=== PATIENT | female | born 1990 | race Caucasian/White ===

== ENCOUNTER 2023-11-08 15:18 | Observation (INO) ==
--- NOTE | 2023-11-08 16:17 | Emergency Department Note ---
Impression & Plan Ectopic without intrauterine , Pelvic pain, Abdominal pain, Acute dehydration ED Provider Note NAME: CAROL HAMMONDS AGE: 33 SEX: F : 1990 ARRIVES VIA: Walk-In INFORMANT: Patient, ED PROVIDER(S): Bal Smith MD CHIEF COMPLAINT: Abdominal pain MEDICAL DECISION MAKING: Patient presents to the behest of [employer] due to concern for recent ectopic with worsening abdominal pain and did have an outpatient ultrasound which did show ovarian enlargement hemorrhagic cysts and persistent ectopic . IV was established and blood work was obtained. Patient was ordered IV Toradol and fluids. I did initiate a consult page to on-call [employer] Dr. Licona. Patient was seen by Dr. Licona who would like a repeat ultrasound. Patient was ordered IV morphine as the patient was still having significant discomfort. Patient's blood work shows a normal white count H&H and platelet count the patient's kidney function is unremarkable with normal LFTs. Beta-hCG is 33 urinalysis shows ketones but no signs of infection. IV fluids ordered. Repeat imaging was obtained and the patient was still in significant discomfort. Ultrasound shows right adnexal complex hypoechoic lesion concerning for ectopic . After further discussion with Dr. Licona and the patient the patient will be taken to the OR. Patient declined any additional pain medication at this time the patient was subsequently taken to the operating room Discussion w/ other healthcare providers: Dr. Licona [employer] Prior /Outside records reviewed: None Appendicitis, ovarian cyst, ovarian torsion, ectopic , TOA, PID, diverticulitis, UTI, obstruction, inflammatory bowel disease, renal colic, PUD, pancreatitis, biliary pathology, hernia, volvulus, constipation, as well as other pathologies were considered. Diagnostics, as interpreted by me: ECG: None Cardiac monitoring: An order was placed for continuous cardiac monitoring. The monitor shows a rate of 95 with sinus rhythm. Patient was placed on pulse oximetry Medical decision rules: None Imaging studies: See below HPI: Patient presents due to concern for worsening right lower quadrant pain. Patient states that she developed pain this morning. She did take some ibuprofen and Tylenol but without significant improvement in symptoms. Patient was diagnosed with an ectopic back on October 28. The patient was started on methotrexate and states that she has had downtrending beta-hCG and her most recent quant was in the 60s. Patient denies any chest pains or shortness of breath. The patient is had nausea but no vomiting. No blood in the urine or stool. No falls or trauma no heavy lifting twisting or turning. Patient did have an outpatient ultrasound today completed at [facility] and then she called the office due to her worsening pain and was sent here for further evaluation and treatment. Patient states that it is worse when she sits compared to standing. PAST MEDICAL HISTORY: See Below PAST SURGICAL HISTORY: See Below SOCIAL HISTORY: See Below HOME MEDICATIONS: See Below ALLERGIES: See Below VITALS: See Below PHYSICAL EXAMINATION: GENERAL: Uncomfortable in appearance, wearing a mask, EYE EXAM: Normal conjunctiva. PERRL, no anisocoria and EOM's grossly intact w/o pain. OROPHARYNX: Moist mucus membranes, grossly normal dentition. NECK: Trachea midline, no stridor. Supple, no nuchal rigidity, no adenopathy, non-tender. No signs of meningismus. FROM of the neck with good chin to chest and neck extension. LUNGS: Clear to auscultation. Normal chest wall mechanics. HEART: NSR, no MRG. ABDOMEN: Abdomen soft, right lower quadrant pain without left lower quadrant pain, mild pain in the right lower quadrant when palpating the right upper quadrant, no masses, no rebound or guarding. BACK: No CVA TTP. SKIN: No rashes and no bruising. UPPER EXTREMITIES: Upper extremities are grossly normal. LOWER EXTREMITIES: Grossly normal, no edema. NEURO EXAM: A&O x3, cranial nerves II-XII grossly intact, normal speech, moves all 4 extremities. Past Med/Surg History Social History Smoking Status: Never smoker Second Hand Exposure: No; Do You Dip or Chew Tobacco: No; Tobacco Cessation Education Requested by Patient: No Hx Alcohol Use: Yes Alcohol type: other Hx Substance Use: No Preferred Language: Monegasque Communication Ability: Effective Accounts Receivable Supervisor Required: No Beliefs That Will Affect Care: None Current Living Situation: Family Other Information That Helps Us Care for You: No Feels Safe at Home: Yes Safety Concerns: Feels Safe At This Time Assistive Devices: None Allergies Allergies Allergy/AdvReac Type Severity Reaction Status Date / Time bee venom protein (honey bee) Allergy Severe Anaphylaxis Unverified 11/08/23 16:35 Home Meds Home Medications Medication Instructions Recorded Confirmed epinephrine 0.3 mg/0.3 mL 0.3 mg IM DAILY PRN Anaphylaxis 11/08/23 11/08/23 injection, auto-injector naratriptan 2.5 mg tablet 2.5 mg PO DAILY PRN Migraine 11/08/23 11/08/23 Headache Previous Rx's Medication Instructions Recorded ibuprofen 600 mg tablet 600 mg PO Q6 #40 tabs 11/09/23 oxycodone-acetaminophen 5 mg-325 1 tab PO Q4H #20 tabs 11/09/23 mg tablet (Percocet) Results & Data (ED) Vital Signs Vital Signs - 24 hr 11/08/23 15:41 Temperature 36.4 C L Temperature Source Temporal Artery Scan Pulse Rate 103 H Respiratory Rate 20 Blood Pressure 155/112 H Blood Pressure Mean 126 Pulse Oximetry 98 Oxygen Delivery Method Room Air Sepsis Recent Fever Within 48 Hours No Sepsis New/Unexplained Change in Mental Status N/A Sepsis Action Taken by Nursing No Action Required Home Medications Current Medication List: was personally reviewed by me Laboratory Data Attestation: I reviewed the patient's lab results. 11/09/23 06:21 11/09/23 06:21 Lab Results 11/08/23 11/08/23 Range/Units 16:14 16:20 WBC 6.68 (4.8-10.8) K/ul RBC 4.64 (4.20-5.40) M/uL Hgb 14.3 (12.0-16.0) g/dl Hct 41.8 (37.0-47.0) % MCV 90.1 (80.0-100.0) fL MCH 30.8 (25.0-34.0) pg MCHC 34.2 (32.0-36.0) g/dL RDW Std Deviation 39.3 (36.4-46.3) fL RDW Coeff of Alexi 11.9 (11.5-14.5) % Plt Count 280 (130-400) K/uL MPV 10.5 (9.4-12.4) fL Immature Gran % (Auto) 0.1 % Neut % (Auto) 58.8 % Lymph % (Auto) 31.9 % [place] % (Auto) 7.9 % Eos % (Auto) 1.0 % Baso % (Auto) 0.3 % Neut # (Auto) 3.92 (1.40-6.50) K/uL Lymph # (Auto) 2.13 (1.20-3.40) K/uL [place] # (Auto) 0.53 (0.11-0.59) K/uL Eos # (Auto) 0.07 (0.00-0.50) K/uL Baso # (Auto) 0.02 (0.00-0.20) K/uL Immature Gran # (Auto) 0.01 (0.01-0.20) K/uL Sodium 137 (136-145) mmol/L Potassium 3.6 (3.5-5.1) mmol/L Chloride 104 (98-107) mmol/L Carbon Dioxide 24 (21-32) mmol/L Anion Gap 9 (3-11) BUN 12 (6-23) mg/dl Creatinine 0.81 (0.6-1.2) mg/dl Est Cr Clr Drug Dosing 93.6 ml/min Est GFR ( Amer) 109.1 ml/min Est GFR (Non-Af Amer) 94.1 ml/min BUN/Creatinine Ratio 14.8 (10-20) Glucose 92 (70-99(Fasting)) mg/dl Calcium 9.9 (8.6-10.3) mg/dl Total Bilirubin 0.8 (0.2-1.0) mg/dl AST 18 (13-39) U/L ALT 19 (7-52) U/L Alkaline Phosphatase 49 (34-104) U/L Total Protein 8.1 (6.0-8.3) gm/dl Albumin 4.9 (3.4-5.0) gm/dl Globulin 3.2 (2.5-4.0) gm/dl Albumin/Globulin Ratio 1.5 (0.9-2) Lipase 15 (11-82) U/L HCG, Quant 33 mIU/ml Urine Color Yellow Urine Appearance Clear (Clear) Urine pH 6.5 (4.5-7.5) Ur Specific [place] 1.014 (1.000-1.030) Urine Protein Negative (Negative) Urine Glucose (UA) Negative (Negative) Urine Ketones 1+ H (Negative) Urine Blood Negative (Negative) Urine Nitrite Negative (Negative) Urine Bilirubin Negative (Negative) Urine Urobilinogen Negative (Negative) Ur Leukocyte Esterase Negative (Negative) Administered Medications Discontinued Medications Acetaminophen (Acetaminophen 325 Mg Tab) 650 mg PO Q6H PRN PRN Reason: pain, headache or fever Stop: 12/08/23 22:32 Last Admin: 11/09/23 08:38 Dose: 650 mg Documented By: SINAN Bupivacaine HCl/Epinephrine Bitart (Bupivacaine/Epinephrine 0.5% Mpf 1:200,000 30 Ml Vial) Confirm Administered Dose 30 ml .ROUTE .STK-MED ONE Stop: 11/08/23 20:23 Last Admin: 11/08/23 22:07 Dose: 20 ml Documented By: RAVINDER Docusate Sodium (Docusate Sodium 100 Mg Cap) 100 mg PO BID TIARA Stop: 12/09/23 08:59 Last Admin: 11/09/23 08:38 Dose: 100 mg Documented By: SINAN Sodium Chloride (Nss) 1,000 mls @ 999 mls/hr IV .Q1H1M ONE Stop: 11/08/23 18:09 Last Infusion: 11/08/23 18:51 Dose: Infused Documented By: Admin: 11/08/23 17:25 Dose: 999 mls/hr Documented By: MAGALYS Cefazolin Sodium (Ancef 2000mg) 2,000 mg in 15 mls @ 3.75 mls/min IV PREOP ONE; Protocol Stop: 11/08/23 20:01 Last Admin: 11/08/23 20:49 Dose: 3.75 mls/min Documented By: [id number] Ibuprofen (Ibuprofen 600 Mg Tab) 600 mg PO Q4H PRN PRN Reason: pain, HULL, cramping or fever Stop: 12/08/23 22:32 Last Admin: 11/09/23 03:56 Dose: 600 mg Documented By: CHIP Ketorolac Tromethamine (Ketorolac Tromethamine 15 Mg/Ml Vial) 10 mg IV NOW ONE Stop: 11/08/23 16:15 Last Admin: 11/08/23 16:24 Dose: 10 mg Documented By: MAGALYS Miscellaneous ( Floseal Hemostatic Matrix 5ml) 10 ml TOP ONCE ONE Stop: 11/08/23 22:07 Last Admin: 11/08/23 22:06 Dose: 10 ml Documented By: RAVINDER Morphine Sulfate (Morphine Sulfate 4 Mg/Ml 1 Ml Carp\Vial) 4 mg IV NOW STA Stop: 11/08/23 16:06 Last Admin: 11/08/23 16:47 Dose: 4 mg Documented By: MAGALYS Morphine Sulfate (Morphine Sulfate 4 Mg/Ml 1 Ml Carp\Vial) Confirm Administered Dose 4 mg .ROUTE .STK-MED ONE Stop: 11/08/23 18:20 Last Admin: 11/08/23 18:22 Dose: 4 mg Documented By: MAGALYS Morphine Sulfate (Morphine Sulfate 4 Mg/Ml 1 Ml Carp\Vial) 4 mg IV NOW STA Stop: 11/08/23 19:04 Last Admin: 11/08/23 19:22 Dose: 4 mg Documented By: BRIAN Ondansetron HCl (Ondansetron Inj 2 Mg/Ml 2 Ml Vial) Confirm Administered Dose 4 mg .ROUTE .STK-MED ONE Stop: 11/08/23 18:20 Last Admin: 11/08/23 18:22 Dose: 4 mg Documented By: MAGALYS Ondansetron HCl (Ondansetron Inj 2 Mg/Ml 2 Ml Vial) 4 mg IV NOW STA Stop: 11/08/23 18:20 Last Admin: 11/08/23 18:22 Dose: Not Given Documented By: MAGALYS Ondansetron HCl (Ondansetron Inj 2 Mg/Ml 2 Ml Vial) 4 mg IV Q6H PRN PRN Reason: Nausea And Vomiting Stop: 12/08/23 22:32 Last Admin: 11/09/23 00:22 Dose: 4 mg Documented By: Discharge Plan Visit Data Chief Complaint: Abdominal Pain Stated Complaint: ULTRASOUND TODAY POSSIBLE RUPTURED OVARY ED Provider: Bal Smith Discharge Problem: Ectopic without intrauterine , Pelvic pain, Abdominal pain, Acute dehydration Patient Disposition: Admitted As Inpatient Condition: Good Discharge Instructions Interventions: ED Discharge Assessment Last Done: 11/08/23 20:13 Discharge Problem: Ectopic without intrauterine Qualifiers: Location of ectopic : unspecified location Qualified Code(s): O00.90 - Unspecified ectopic without intrauterine Abdominal pain Qualifiers: Abdominal location: right lower quadrant Qualified Code(s): R10.31 - Right lower quadrant pain
[2023-11-08] MEDS: KETOROLAC TROMETHAMINE 15 MG/ML VIAL IV ONE (16:24)
[2023-11-08 16:41] LABS: Basophils # (auto) 0.02 K/uL (0.00-0.20); Basophils % (auto) 0.3 %; Eosinophils # (auto) 0.07 K/uL (0.00-0.50); Hematocrit (blood only) 41.8 % (37.0-47.0); Hemoglobin 14.3 g/dl (12.0-16.0); Immature Granulocytes # (auto) 0.01 K/uL (0.01-0.20); Immature Granulocytes % (auto) 0.1 %; Lymphocytes # (auto) 2.13 K/uL (1.20-3.40); Lymphocytes % (auto) 31.9 %; Mean Corpuscular Hemoglobin 30.8 pg (25.0-34.0); Mean Corpuscular Hgb Conc 34.2 g/dL (32.0-36.0); Mean Corpuscular Volume 90.1 fL (80.0-100.0); Mean Platelet Volume 10.5 fL (9.4-12.4); Monocytes # (auto) 0.53 K/uL (0.11-0.59); Monocytes % (auto) 7.9 %; Neutrophils # (auto) 3.92 K/uL (1.40-6.50); Neutrophils % (auto) 58.8 %; Platelet Count 280 K/uL (130-400); RDW Coefficient of Variation 11.9 % (11.5-14.5); RDW Standard Deviation 39.3 fL (36.4-46.3); Red Blood Count 4.64 M/uL (4.20-5.40); White Blood Count 6.68 K/ul (4.8-10.8)
[2023-11-08] MEDS: MoRPHine SULFATE 4 MG/ML 1 ML CARP\\VIAL IV STA ×2 (16:47→19:22)
[2023-11-08 16:58] LABS: Albumin Globulin Ratio 1.5 (0.9-2); Albumin Level 4.9 gm/dl (3.4-5.0); BUN Creatinine Ratio 14.8 (10-20); Bilirubin,Total 0.8 mg/dl (0.2-1.0); Calcium 9.9 mg/dl (8.6-10.3); Creatinine Clr Calc Pharmacy 93.6 ml/min; Est GFR (African American) 109.1 ml/min; Est GFR (Non-African American) 94.1 ml/min; Globulin 3.2 gm/dl (2.5-4.0); Potassium 3.6 mmol/L (3.5-5.1); Total Protein 8.1 gm/dl (6.0-8.3)
[2023-11-08 17:02] LABS: Appearance Urine Clear (Clear); Bilirubin Urine Negative (Negative); Blood Urine Negative (Negative); Color Urine Yellow; Glucose Urine UA Negative (Negative); Ketones Urine 1+ (Negative); Leukocyte Esterase Urine Negative (Negative); Nitrite Urine Negative (Negative); Protein Urine Negative (Negative); Specific Gravity Urine 1.014 (1.000-1.030); Urobilinogen Urine Negative (Negative); pH Urine 6.5 (4.5-7.5)
[2023-11-08] MEDS: SODIUM CHLORIDE 0.9% 1,000 ML IV ONE (17:25)
[2023-11-08] MEDS: ONDANSETRON INJ 2 MG/ML 2 ML VIAL ONE (18:22)
[2023-11-08] MEDS: MoRPHine SULFATE 4 MG/ML 1 ML CARP\\VIAL ONE (18:22)
[2023-11-08] MEDS: ONDANSETRON INJ 2 MG/ML 2 ML VIAL IV STA (18:22)
--- NOTE | 2023-11-08 18:42 | OB/GYN Consultation ---
Date of Consultation November 08, 2023 Assessment & Plan (1) Prior methotrexate therapy: 33-year-old -0-1-1 status post methotrexate therapy for ectopic on September 27, trending down beta-hCG 's from 1999's to 33 today. Normal H&H and white count, fluid in the pelvis per ultrasound with persistent lesion suggesting prior ectopic , right ovarian cyst hemorrhagic cyst Presenting today with worsening pelvic pain since yesterday, Is unlikely that she has bleeding from ectopic with decreasing beta hCG count and normal H&H, We discussed the possible options of fallopian tube swelling, irritation from recent ectopic , adnexal torsion, hemorrhagic corpus luteum cysts of right ovary, We discussed the options of either expectant management with pain medication and observe her overnight here versus going for laparoscopy to explore and treat if there is any pathology in the pelvis, She understands all and she wants to have another ultrasound to confirm the findings, We will decide after ultrasound results check for Doppler flow of ovaries, All questions were answered. (2) Ectopic without intrauterine : (3) Pelvic pain: History of Present Illness Reason for Consultation: Pelvic pain History of Present Illness Patient is a 33-year-old -0-1-1 who is status post methotrexate treatment for ectopic on September 27 Her beta-hCG counts were not rising normally. She had ultrasound then and it was suggesting right-sided ectopic at [facility]. She has been having beta-hCG counts since the treatment and they have been coming down normally. Her last count was last week and it was 66 and she had a repeat from today and it is 33miu/ml. she was doing fine until yesterday when she started to have pelvic pain. She had called office to report the pain and they performed an ultrasound for her. Her pain got worse this afternoon and became severe after 2 PM. She causes constant, at times 8-10 out of 10. Laying down helps but any type of movement or sitting makes it worse. She denies any problem with urination nor bowel movements. She had normal bowel movement this morning with no pain. But now it hurts when she sits in the bathroom. She denies fever chills, nausea or vomiting. She ate breakfast and kept it down this morning. But now her pain is making her nauseous. Her ultrasound done at [facility] as follows: LMP: History of ectopic on prior examination, post methotrexate treatment UTERUS: 8.2 cm x 4.4 cm x 5.7 cm MYOMETRIUM: Homogeneous ENDOMETRIUM: 6.9 mm in thickness, within normal limits. RIGHT OVARY: 6.2 cm x 2.7 cm x 2.7 cm, 23.6 ml there are cysts in the right ovary which appear to be hemorrhagic measuring 2.1 x 2.3 x 2 cm and 2.3 x 2.5 x 1.3 cm. In addition there is a right adnexal mass which measures 1.9 x 1.8 x 1.7 cm inferior and medial to the right ovary she is slightly larger than previous examination of 09/26/2023 at which time it measured 1.7 x 1.3 x 1.5 cm. This is likely ectopic . LEFT OVARY: 3.3 cm x 1.9 cm x 1.4 cm, 4.5 ml Unremarkable MISCELLANEOUS: Small amount of free fluid. IMPRESSION IMPRESSION: Persistent right adnexal mass slightly increased in size from prior examination 09/26/2023 as described above consistent with ectopic which persists post methotrexate correlate with clinical examination as well as beta HCG. 11/08/23 33 mIU/ml 11/01/23 68 mIU/ml 10/25/23 157 mIU/ml 10/18/23 278 mIU/ml 10/11/23 718 mIU/ml 10/01/23 1955 mIU/ml 09/25/23 2713 mIU/ml 09/23/23 2209 mIU/ml 09/21/23 1555 mIU/ml 09/19/23 1636 mIU/ml Allergies Allergy/AdvReac Type Severity Reaction Status Date / Time bee venom protein (honey bee) Allergy Severe Anaphylaxis Unverified 11/08/23 16:35 Home Medications Medication Instructions Recorded Confirmed Type epinephrine 0.3 mg/0.3 mL 0.3 mg IM DAILY PRN Anaphylaxis 11/08/23 11/08/23 History injection, auto-injector naratriptan 2.5 mg tablet 2.5 mg PO DAILY PRN Migraine 11/08/23 11/08/23 History Headache Patient History Social History Smoking Status: Never smoker Preferred Language: Luxembourger Feels Safe at Home: Yes Review of Systems Constitutional: as per Subjective / HPI Physical Exam Constitutional: WD/WN, vitals as above well developed, well nourished and + acute distress (seems painful, trying to get comfortable with moving and flexing legs) Gastrointestinal (Abdomen): normal bowel sounds, soft, nontender, no hepatosplenomegaly (Tenderness on right lower quadrant with rebound, epigastric tenderness pres) Genitourinary: normal external appearance Speculum/Bimanual Exam: normal appearance of the vagina, normal appearance of the cervix, + cervical tenderness, + abnormal adnexa (Right adnexal tenderness) and + cervical tenderness Results & Data Vital Signs (Past 12 Hours) Vital Signs Temp Pulse Resp BP Pulse Ox O2 Del Method 11/08/23 15:41 36.4 C L 103 H 20 155/112 H 98 Room Air 11/08/23 15:19 36.4 C L 20 98 Room Air Laboratory Results Lab Results 11/08/23 11/08/23 Range/Units 16:14 16:20 WBC 6.68 (4.8-10.8) K/ul RBC 4.64 (4.20-5.40) M/uL Hgb 14.3 (12.0-16.0) g/dl Hct 41.8 (37.0-47.0) % MCV 90.1 (80.0-100.0) fL MCH 30.8 (25.0-34.0) pg MCHC 34.2 (32.0-36.0) g/dL RDW Std Deviation 39.3 (36.4-46.3) fL RDW Coeff of Alexi 11.9 (11.5-14.5) % Plt Count 280 (130-400) K/uL MPV 10.5 (9.4-12.4) fL Immature Gran % (Auto) 0.1 % Neut % (Auto) 58.8 % Lymph % (Auto) 31.9 % [place] % (Auto) 7.9 % Eos % (Auto) 1.0 % Baso % (Auto) 0.3 % Neut # (Auto) 3.92 (1.40-6.50) K/uL Lymph # (Auto) 2.13 (1.20-3.40) K/uL [place] # (Auto) 0.53 (0.11-0.59) K/uL Eos # (Auto) 0.07 (0.00-0.50) K/uL Baso # (Auto) 0.02 (0.00-0.20) K/uL Immature Gran # (Auto) 0.01 (0.01-0.20) K/uL Sodium 137 (136-145) mmol/L Potassium 3.6 (3.5-5.1) mmol/L Chloride 104 (98-107) mmol/L Carbon Dioxide 24 (21-32) mmol/L Anion Gap 9 (3-11) BUN 12 (6-23) mg/dl Creatinine 0.81 (0.6-1.2) mg/dl Est Cr Clr Drug Dosing 93.6 ml/min Est GFR ( Amer) 109.1 ml/min Est GFR (Non-Af Amer) 94.1 ml/min BUN/Creatinine Ratio 14.8 (10-20) Glucose 92 (70-99(Fasting)) mg/dl Calcium 9.9 (8.6-10.3) mg/dl Total Bilirubin 0.8 (0.2-1.0) mg/dl AST 18 (13-39) U/L ALT 19 (7-52) U/L Alkaline Phosphatase 49 (34-104) U/L Total Protein 8.1 (6.0-8.3) gm/dl Albumin 4.9 (3.4-5.0) gm/dl Globulin 3.2 (2.5-4.0) gm/dl Albumin/Globulin Ratio 1.5 (0.9-2) Lipase 15 (11-82) U/L HCG, Quant 33 mIU/ml Urine Color Yellow Urine Appearance Clear (Clear) Urine pH 6.5 (4.5-7.5) Ur Specific [place] 1.014 (1.000-1.030) Urine Protein Negative (Negative) Urine Glucose (UA) Negative (Negative) Urine Ketones 1+ H (Negative) Urine Blood Negative (Negative) Urine Nitrite Negative (Negative) Urine Bilirubin Negative (Negative) Urine Urobilinogen Negative (Negative) Ur Leukocyte Esterase Negative (Negative)
--- NOTE | 2023-11-08 19:18 | Ultrasound Report ---
US ectopic CLINICAL HISTORY: repeat, eval for torsion and ectopic Technique: Real-time sonographic images of the pelvic contents were obtained with transabdominal and transvaginal technique. COMPARISON: None available at the time of this dictation. FINDINGS: Uterus measures 8.5 x 3.4 x 4.1 cm. Nabothian cysts are seen. Uterus is heterogeneous with a tiny oriana cification noted. The endometrial stripe measures 4 mm. Right ovary measures 2.4 x 5.3 x 2.2 cm. Left ovary measures 1.6 x 3.4 x 1.3 cm. In the right adnexa, there is a complex hypoechoic lesion measuring 2.0 x 1.6 x 1.8 cm. IMPRESSION: Right adnexal complex hypoechoic lesion is concerning for ectopic . No intrauterine pregnanc y is seen. ACT 112: Negative or not required by law. Electronically signed by: Avi Bowen M.D. 11/08/2023 7:17 PM
--- NOTE | 2023-11-08 19:57 | Gynecologic Progress Note ---
Date of Service November 08, 2023 Subjective Patient is back from US ad has received 2 more IV doses of Morphine with not much help. She is crying with pain US results: Good blood flow to both ovaries FINDINGS: Uterus measures 8.5 x 3.4 x 4.1 cm. Nabothian cysts are seen. Uterus is heterogeneous with a tiny calcification noted. The endometrial stripe measures 4 mm. Right ovary measures 2.4 x 5.3 x 2.2 cm. Left ovary measures 1.6 x 3.4 x 1.3 cm. In the right adnexa, there is a complex hypoechoic lesion measuring 2.0 x 1.6 x 1.8 cm. IMPRESSION: Right adnexal complex hypoechoic lesion is concerning for ectopic . No intrauterine is seen. Discussed the findings and options of either surgery or admit for pain control and then decide depending how she would do. Discussed the risks of a major surgery, including but not limited to bleeding , infection, injury to surrounding organs like bowels, bladder, ureters, adhesions, scarring. She desires to have surgery. All questions were answered. She signed an informed consent for EUA. Laparoscopic treatment of ectopic , possible Rt Salpingectomy, rt ovarian cystectomy or salpigooophorectomy depending on findings. Results & Data Vital Signs (Past 12 Hours) Vital Signs Temp Pulse Pulse Resp BP BP Pulse Ox 11/08/23 19:41 95 11/08/23 19:21 93 H 12 133/85 95 11/08/23 15:41 36.4 C L 103 H 20 155/112 H 98 11/08/23 15:19 36.4 C L 20 98 O2 Del Method 11/08/23 19:41 Room Air 11/08/23 19:21 Room Air 11/08/23 15:41 Room Air 11/08/23 15:19 Room Air
[2023-11-08] MEDS ORDERED: SUCCINYLCHOLINE CHLORIDE 20 MG/ML 10 ML VIAL IV ONE (20:21)
[2023-11-08] MEDS ORDERED: ROCURONIUM BROMIDE 10 MG/ML 5 ML VIAL IV ONE (20:21)
[2023-11-08] MEDS ORDERED: fentaNYL citrate PF 100 MCG/2 ML VIAL ONE ×2 (20:21→22:15)
[2023-11-08] MEDS ORDERED: PROPOFOL IV EMULSION 10 MG/ML 20 ML VIAL IV ONE (20:21)
[2023-11-08] MEDS ORDERED: ARTIFICIAL TEARS OP OINT 3.5 GM TUBE ONE (20:25)
--- NOTE | 2023-11-08 20:28 | Anesthesiology Consultation ---
Date of Service November 08, 2023 Assessment & Plan Chart Review Chart Review: Acceptable Risk for Surgery and Patient NOT seen in Pre Admission Testing Consults Requested none History Surgery Operation Date: 11/08/23 19:55 Proposed Procedures p Laparoscopic Ectopic - Gaye Valencia MD Height/Weight Height: 5 ft 4 in Weight: 70.9 kg Allergies Allergy/AdvReac Type Severity Reaction Status Date / Time bee venom protein (honey bee) Allergy Severe Anaphylaxis Unverified 11/08/23 16:35 Medications Home Medications Medication Instructions Recorded Confirmed Last Taken epinephrine 0.3 mg/0.3 mL 0.3 mg IM DAILY PRN Anaphylaxis 11/08/23 11/08/23 Unknown injection, auto-injector naratriptan 2.5 mg tablet 2.5 mg PO DAILY PRN Migraine 11/08/23 11/08/23 Unknown Headache Social History Smoking Status: Never smoker Review of Systems Constitutional: as per Subjective / HPI Physical Exam Vital Signs Last Vital Signs Temp 36.4 C L 11/08/23 15:41 Pulse 103 H 11/08/23 19:24 Resp 12 11/08/23 19:21 BP 133/85 11/08/23 19:21 Pulse Ox 95 11/08/23 19:41 O2 Del Method Room Air 11/08/23 19:41 Constitutional WD/WN, vitals as above well developed, well nourished and + acute distress (seems painful, trying to get comfortable with moving and flexing legs) Gastrointestinal (Abdomen) normal bowel sounds, soft, nontender, no hepatosplenomegaly (Tenderness on right lower quadrant with rebound, epigastric tenderness pres) Genitourinary normal external appearance Speculum/Bimanual Exam: normal appearance of the vagina, normal appearance of the cervix, + cervical tenderness, + abnormal adnexa (Right adnexal tenderness) and + cervical tenderness Testing Laboratory Results 11/08/23 16:14 11/08/23 16:14 HCG, Quant 33 mIU/ml 11/08/23 16:14 Urine Color Yellow 11/08/23 16:20 Urine Appearance Clear (Clear) 11/08/23 16:20 Urine pH 6.5 (4.5-7.5) 11/08/23 16:20 Ur Specific [place] 1.014 (1.000-1.030) 02/21/24 16:20 Urine Protein Negative (Negative) 11/08/23 16:20 Urine Glucose (UA) Negative (Negative) 11/08/23 16:20 Urine Ketones 1+ (Negative) H 11/08/23 16:20 Urine Nitrite Negative (Negative) 11/08/23 16:20 Ur Leukocyte Esterase Negative (Negative) 11/08/23 16:20 11/08/23 16:14 HCG, Quant 33
[2023-11-08] MEDS ORDERED: MIDAZOLAM HCL 1 MG/ML 2ML VIAL ONE (20:30)
[2023-11-08] MEDS ORDERED: SODIUM CHLORIDE 0.9% PF INJ 10 ML VIAL ONE ×2 (20:41)
[2023-11-08] MEDS ORDERED: ceFAZolin 330 MG/ML 1 GM VIAL ONE ×2 (20:41)
[2023-11-08] MEDS: ceFAZolin 2000MG 2,000 MG/15 ML SYR IV ONE (20:49)
[2023-11-08] MEDS ORDERED: DEXAMETHASONE SOD INJ 4 MG/ML VIAL ONE ×2 (21:15)
[2023-11-08] MEDS: FLOSEAL HEMOSTATIC MATRIX 5ML TOP ONE (22:06)
[2023-11-08] MEDS ORDERED: SUGAMMADEX SODIUM 200 MG/2 ML VIAL IV ONE (22:06)
[2023-11-08] MEDS: BUPIVACAINE/EPINEPHRINE 0.5% MPF 1:200,000 30 ML VIAL ONE (22:07)
[2023-11-08] MEDS ORDERED: ONDANSETRON INJ 2 MG/ML 2 ML VIAL ONE (22:07)
[2023-11-08] MEDS ORDERED: ATROPINE SULFATE 0.1 MG/ML 10ML SYR IV PRN (22:08)
[2023-11-08] MEDS ORDERED: fentaNYL citrate PF 100 MCG/2 ML VIAL IV PRN (22:08)
[2023-11-08] MEDS ORDERED: ePHEDrine sulfate 50 MG/ML AMP IV PRN (22:08)
[2023-11-08] MEDS ORDERED: DROPERIDOL 5 MG/2 ML VIAL IV PRN (22:08)
[2023-11-08] MEDS ORDERED: ACETAMINOPHEN 1,000 MG/100 ML VIAL IV PRN (22:33)
[2023-11-08] MEDS ORDERED: MEPERIDINE HCL 50 MG/ML CARP IV PRN (22:33)
[2023-11-08] MEDS ORDERED: oxyCODONE/ACETAMINOPHEN 5mg/325mg TAB PO PRN ×2 (22:33)
[2023-11-08] MEDS ORDERED: bisacodyL 10 MG SUPP PR PRN (22:33)
[2023-11-08] MEDS ORDERED: KETOROLAC 30 MG/ML VIAL IV PRN (22:33)
[2023-11-08] MEDS ORDERED: SIMETHICONE 80 MG CHEW PO PRN (22:33)
[2023-11-08] MEDS ORDERED: MEPERIDINE HCL 25 MG/ML CARP/VIAL IV PRN (22:33)
--- NOTE | 2023-11-08 22:40 | Operative Report ---
Post Operative Report Pre & Post Diagnosis Operation Date: 11/08/23 19:55 Pre-Op Diagnosis: Ectopic Post-Op Diagnosis: Ectopic I identified the patient and participated in the time-out.: Yes Procedure Operation Date: 11/08/23 19:55 Actual Procedures p EUA,Laparoscopic treatment of Ectopic , of ectopic from right fallopian tubal end(Not Applicable) - Gaye Valencia MD Surgeon Gaye Valencia MD Auger Supervisor OR Nurse Estimated Blood Loss 20 Findings Consistent with Post-Op Diagnosis Exam under anesthesia revealed normal-sized anteverted uterus and nonpalpable is adnexa. Intraoperative findings: Normal bowels, uterus, left fallopian tube and ovary, right loping tube was normal except that there was a 2 x 3 cm clotted ectopic material aborting from fimbrial end. The fimbria appeared to be normal except minimal oozing. Right ovary was slightly enlarged from physiologic hemorrhagic cyst. Specimens Right tubal ectopic Anesthesia Type General Complications none Indications Patient is a 33-year-old -0-1-1 who is status post methotrexate treatment for ectopic on September 27, 2023. She has been checking beta-hCG levels since then weekly and they have been coming down. They started around 1999's now went down to 33 miu/ml. She started to have right-sided pelvic pain, abdominal pain since November 07 morning, progressively getting worse over time. Pain was not responding to IV morphine and Toradol in the ER. Ultrasound suggested persistent right ovary and ectopic no significant free fluid. Her H&H was stable. After discussion of all the options patient decided to proceed with surgical exploration, treatment of ectopic and signed an informed consent. Description of Procedure Patient was taken to the OR and was given general anesthesia without difficulty. She was placed in dorsal Lithotomy position and prepared and draped in usual sterile fashion. Exam under anesthesia was done with the above findings. Speculum was placed in the patient's vagina, cervix was visualized and grasped with a [email or web address] uterine manipulator which was placed into uterine cavity to provide manipulation during surgery. Gloves were changed and attention was given to patient's abdomen where a periumbilical skin incision was made. The subcu fat tissue was dissected off with the tip of hemostat and then the fascia was visualized and grasped with Rigo clamps x 2. Fascia was incised in the midline with scalpel and then tip of hemostat was anterior to anteroinferior abdominal cavity. Small ST was were placed through this opening and then 10 mm Iverson trocar was placed and it was attached to the fascia with an sutures. Then CO2 gas was attached to the trocar to provide pneumoperitoneum. Intra-abdominal pressure was set to 15 mmHg pressure. The scope was placed through the trocar and intra-abdominal placement was confirmed. Upon entering the abdomen both surfaces looked intact normal and wit h no bleeding. Then patient was placed in dorsal rectum position uterus was brought to the midline by manipulator and it was dry and had no blood. 2 more trocars were placed in right and left lower quadrants under laparoscopic light guidance. Those were 5 mm trocars. Those were used to place grasper and manipulate bowel gently. And then left fallopian tube and ovary was checked to be normal with no bleeding or nor lesion. Right fallopian tube was visualized and there was a 2 x 3 cm cloudy material at the fimbrial end of the right fallopian tube which was aborting through the tubal opening. Rest of the right fallopian tube was intact and normal with no swelling no color change no bleeding. And the right ovary was visualized under the tube it was slightly enlarged from origin hemorrhagic cyst. There was a small os in the middle of the right ovary most likely from the hemorrhagic cyst but no active bleeding was noted. Cul-de-sac has minimal fluid with no bleeding. Down with their graspers the right footprint tube was grasped from the fimbrial and and then this ectopic clotted material was grasped and gently removed from the tube. It was placed in the Endobag and removed from 10 mm trocar. And right fallopian tube fimbrial edge was minimal oozing which was stopped with ligature coagulation device which was activated only 2 times. Fimbria appeared to be in still normal. And it was in part on the right ovary was also coagulated with the tip of LigaSure device and it was hemostatic. Pelvis and the right adnexa was irrigated with warm normal saline and suctioned. The pictures were taken before and after the hemostasis. And those edges were covered with Floseal to prevent oozing in the future. We watch and make sure that it was hemostatic no bleeding. Then the procedure was ended. The trocar sites were visualized with scope to be hemostatic. They were removed under camera guidance. All the CO2 gas was emptied from her abdomen. At the umbilical incision, does 0 Vicryl sutures on the fascia over reapproximated and the rest of the fascia was repaired with 0 Vicryl with [id number] stitches. The skin was closed with 4-0 Monocryl in a subcuticu lar fashion. And the other trocar sites were hemostatic and they were repaired with 0 Vicryl and covered with sterile dressings. The trocar was removed from the vagina and cervix was hemostatic. The patient tolerated procedure well. The sponge needle instrument count was correct x 2. She was given 2 g of cefazolin before surgery. She was taken to recovery room in stable condition. No complications happened and I was present during whole procedure. I attest to the content of the Intraoperative Record and any orders documented therein. Any exceptions are noted below.
[2023-11-08] MEDS ORDERED: MEPERIDINE HCL 25 MG/ML CARP/VIAL ONE (22:43)
[2023-11-08] MEDS ORDERED: LACTATED RINGER'S 1,000 ML IV SCH (22:45)
[2023-11-08] MEDS ORDERED: MEPERIDINE HCL 25 MG/ML CARP/VIAL IV STA (22:54)
--- NOTE | 2023-11-08 22:59 | Anesthesiology Progress Note ---
Date of Service November 08, 2023 Anesthesia Post Procedure Vital Signs Vital Signs: Temp Pulse Pulse Resp BP BP Pulse Ox 11/08/23 22:50 103 H 24 126/73 98 11/08/23 22:43 37.1 C 110 H 15 145/85 H 95 11/08/23 19:41 95 11/08/23 19:24 103 H 11/08/23 19:21 93 H 12 133/85 95 11/08/23 15:41 36.4 C L 103 H 20 155/112 H 98 11/08/23 15:19 36.4 C L 20 98 O2 Del Method 11/08/23 22:50 Room Air 11/08/23 22:43 Room Air 11/08/23 19:41 Room Air 11/08/23 19:24 11/08/23 19:21 Room Air 11/08/23 15:41 Room Air 11/08/23 15:19 Room Air Transfer of Care Handoff Completed per policy Notes Mental Status: alert / awake / arousable Patient Amnestic to Procedure: Yes Nausea / Vomiting: adequately controlled Pain: adequately controlled Airway Patency, RR, SpO2: stable & adequate BP & HR: stable & adequate Hydration State: stable & adequate Anesthetic Complications: no major complications apparent and Pt Satisfied with anesthetic care
[2023-11-09] MEDS: ONDANSETRON INJ 2 MG/ML 2 ML VIAL IV PRN (00:22)
--- NOTE | 2023-11-09 00:52 | Gynecologic Progress Note ---
Date of Service November 09, 2023 Assessment & Plan Admission and Anticipated Discharge Date Admission Date: November 08, 2023 Subjective Postop check Patient is seen and examined Feels better than before Pain is under control with meds No CP/ SOB/ Dizziness/ N&V/ VB/ Leg pain Not OOB yet Tolerating clears Explained about the surgery and findings Shown her pictures, she wanted to keep pictures. Vital Signs Height Weight Body Mass Index Blood Pressure Blood Pressure Position Temperature Temperature Source 5 ft 4 in 77.467 kg 29.2 129/85 Semi-fowlers 36.9 C Oral 11/08/23 23:45 11/08/23 23:45 11/08/23 23:45 11/09/23 00:15 11/09/23 00:15 11/09/23 00:15 11/09/23 00:15 Pulse Rate Respiratory Rate Pulse Oximetry 90 18 96 11/09/23 00:15 11/09/23 00:15 11/09/23 00:15 PE: General: Alert, orientedx3, NAD CVS: S1S2 RRR Lungs: CTAB Abd: soft, NT, ND, BS+, Incisions C/D/I No VB Ext: NT, no edema, SCD's on AP: 33 yo female s/p EUA, Laparoscopic removal of ectopic , pod#0 VSS Afebrile doing well Continue to routine postop care Encourage PO intake, may ambulate D/C kennedy in am D/C home after breakfast Results & Data Vital Signs (Past 12 Hours) Vital Signs Temp Pulse Pulse Pulse Resp BP BP 11/09/23 00:15 36.9 C 90 18 129/85 11/08/23 23:45 36.6 C 91 H 18 136/84 11/08/23 23:10 88 15 118/77 11/08/23 23:00 90 12 138/80 11/08/23 22:50 103 H 24 126/73 11/08/23 22:43 37.1 C 110 H 15 145/85 H 11/08/23 19:41 11/08/23 19:24 103 H 11/08/23 19:21 93 H 12 133/85 11/08/23 15:41 36.4 C L 103 H 20 155/112 H 11/08/23 15:19 36.4 C L 20 Pulse Ox O2 Del Method 11/09/23 00:15 96 Room Air 11/08/23 23:45 98 Room Air 11/08/23 23:10 95 Room Air 11/08/23 23:00 95 Room Air 11/08/23 22:50 98 Room Air 11/08/23 22:43 95 Room Air 11/08/23 19:41 95 Room Air 11/08/23 19:24 11/08/23 19:21 95 Room Air 11/08/23 15:41 98 Room Air 11/08/23 15:19 98 Room Air
[2023-11-09] MEDS: IBUPROFEN 600 MG TAB PO PRN (03:56)
[2023-11-09 06:54] LABS: Hematocrit (blood only) 40.5 % (37.0-47.0); Hemoglobin 13.9 g/dl (12.0-16.0); Immature Granulocytes # (auto) 0.03 K/uL (0.01-0.20); Immature Granulocytes % (auto) 0.4 %; Lymphocytes % (auto) 7.6 %; Mean Corpuscular Hemoglobin 30.8 pg (25.0-34.0); Mean Corpuscular Hgb Conc 34.3 g/dL (32.0-36.0); Mean Corpuscular Volume 89.6 fL (80.0-100.0); Mean Platelet Volume 10.5 fL (9.4-12.4); Monocytes # (auto) 0.19 K/uL (0.11-0.59); Monocytes % (auto) 2.4 %; Neutrophils # (auto) 7.03 K/uL (1.40-6.50); Neutrophils % (auto) 89.6 %; Platelet Count 299 K/uL (130-400); RDW Coefficient of Variation 11.8 % (11.5-14.5); RDW Standard Deviation 38.4 fL (36.4-46.3); Red Blood Count 4.52 M/uL (4.20-5.40); White Blood Count 7.85 K/ul (4.8-10.8)
[2023-11-09 07:08] LABS: BUN Creatinine Ratio 13.3 (10-20); Calcium 8.9 mg/dl (8.6-10.3); Creatinine Clr Calc Pharmacy 105.5 ml/min; Est GFR (African American) 119.7 ml/min; Est GFR (Non-African American) 103.3 ml/min; Potassium 3.9 mmol/L (3.5-5.1)
[2023-11-09] MEDS: DOCUSATE SODIUM 100 MG CAP PO SCH (08:38)
[2023-11-09] MEDS: ACETAMINOPHEN 325 MG TAB PO PRN (08:38)
--- NOTE | 2023-11-09 10:05 | Surgery Progress Note ---
Date of Service November 09, 2023 Assessment & Plan Admission and Anticipated Discharge Date Admission Date: November 08, 2023 Subjective doing well. no pain noted. Physical Exam Constitutional: WD/WN, vitals as above Gastrointestinal (Abdomen): Inspection/Auscultation: abdomen normal to inspection incisions c/d/i abdomen is soft and non-tender Musculoskeletal: Extremities: extremities normal to inspection Skin: no rashes, warm and dry Neurologic: patellar DTR's 2+ bilat, sensation intact Psychiatric: A+Ox3, euthymic affect Results & Data Vital Signs (Past 12 Hours) Vital Signs Temp Pulse Pulse Resp BP Pulse Ox O2 Del Method 11/09/23 07:30 37 C 92 H 18 134/82 96 Room Air 11/09/23 03:05 36.9 C 97 H 18 126/72 96 Room Air 11/09/23 02:00 36.8 C 88 18 123/78 97 Room Air 11/09/23 00:45 36.7 C 86 18 124/79 96 Room Air 11/09/23 00:15 36.9 C 90 18 129/85 96 Room Air 11/08/23 23:45 36.6 C 91 H 18 136/84 98 Room Air 11/08/23 23:10 88 15 118/77 95 Room Air 11/08/23 23:00 90 12 138/80 95 Room Air 11/08/23 22:50 103 H 24 126/73 98 Room Air 11/08/23 22:43 37.1 C 110 H 15 145/85 H 95 Room Air Laboratory Results 11/08/23 11/08/23 11/09/23 16:14 16:20 06:21 WBC 6.68 7.85 RBC 4.64 4.52 Hgb 14.3 13.9 Hct 41.8 40.5 MCV 90.1 89.6 MCH 30.8 30.8 MCHC 34.2 34.3 RDW Std Deviation 39.3 38.4 RDW Coeff of Alexi 11.9 11.8 Plt Count 280 299 MPV 10.5 10.5 Immature Gran % (Auto) 0.1 0.4 Neut % (Auto) 58.8 89.6 Lymph % (Auto) 31.9 7.6 [place] % (Auto) 7.9 2.4 Eos % (Auto) 1.0 0.0 Baso % (Auto) 0.3 0.0 Neut # (Auto) 3.92 7.03 H Lymph # (Auto) 2.13 0.60 L [place] # (Auto) 0.53 0.19 Eos # (Auto) 0.07 0.00 Baso # (Auto) 0.02 0.00 Immature Gran # (Auto) 0.01 0.03 Sodium 137 136 Potassium 3.6 3.9 Chloride 104 106 Carbon Dioxide 24 23 Anion Gap 9 7 BUN 12 10 Creatinine 0.81 0.75 Est Cr Clr Drug Dosing 93.6 105.5 Est GFR ( Amer) 109.1 119.7 Est GFR (Non-Af Amer) 94.1 103.3 BUN/Creatinine Ratio 14.8 13.3 Glucose 92 179 H Calcium 9.9 8.9 Total Bilirubin 0.8 AST 18 ALT 19 Alkaline Phosphatase 49 Total Protein 8.1 Albumin 4.9 Globulin 3.2 Albumin/Globulin Ratio 1.5 Lipase 15 HCG, Quant 33 Urine Color Yellow Urine Appearance Clear Urine pH 6.5 Ur Specific [place] 1.014 Urine Protein Negative Urine Glucose (UA) Negative Urine Ketones 1+ H Urine Blood Negative Urine Nitrite Negative Urine Bilirubin Negative Urine Urobilinogen Negative Ur Leukocyte Esterase Negative
--- OUTSIDE RECORDS SUMMARY | 2023-11-09 15:16 | External Medical Summary | Summary of Care ---
Author Name Unknown Organization [facility] Address [address] [place] [address] Phone [phone] Care Team Providers Care Child Development Assistant Name Role Phone Unavailable Primary Care Provider Unavailabl e Reason for Visit * Reason Onset Date Comments Pain 11/07/2023 Discuss with owu kennedy Encounter Details Date Type Department Care Team (Late st Contact Info) Description 11/07/2023 Telephone Gynecology/Obstetrics [facility] [address] [facility] [place] [address] Alvin Selby MD [address] [place] [address] Pain (Discuss with elias ) Allergies Active Allergy Reactions Criticality Noted Date Comments Bee Venom 04/13/2023 documented as of this encounter (statuses as of 11/07/2023) Medications Medication Sig Dispensed Refills Start Date End Date Status Naratriptan HCl 2.5 MG Oral Tablet (Amerge) Take 1 Tablet by mouth as needed for Migraine. 0 Active documented as of this encounter (statuses as of 11/07/2023) Active Problems Problem Noted Date Diagnosed Date Encounter for preconception consultation 023 Overview: 33yo female seeking LMP: Currently has Mirena in place Partner: Sage, age 39, healthy, no other children. 1. Advanced maternal age CONSIDERATIONS: We reviewed the most pertinent aspects of the following: Advanced maternal age (AMA) refers to a woman with a ham who will be at the age of 35 or older at the estimated time of delivery and may be associated with increased morbidity. Cell-free DNA (cffDNA) screening is a genetic screening option that analyzes maternal blood for DNA that is placental in origin and targets the following conditions: Trisomy 21 (Down syndrome), trisomy 18, trisomy 13, and sex chromosome abnormalities such as monosomy X (Gonzalez syndrome), and sex chromosome trisomies (triple X, Klinefelter syndrome, XYY). It may also evaluate for other genetic alterations such as microdeletions, depending on the specific test. It reveals the sex of the fetus but should generally not be performed solely for this indication. The screening test can be performed after 10 weeks gestation. Results provided are NOT diagnostic, but provide a risk estimate. Types of results include low-risk/negative, high-risk/positive, and inconclusive. Low-risk results convey a low risk for the conditions screened, while high-risk results will indicate which condition is high risk and the likelihood of the condition based on the results. High-risk and inconclusive results would require follow up with a Maternal- Medicine genetic counselor. Amniocentesis would be recommended in the setting of high-risk results. Results are available 5-7 days after the test is completed. Cost of cffDNA screening is dependent on health insurance plan. Offer MSAFP only (not Quad Screen) at 16-22 weeks if screening for open neural tube defects is desired. Amniocentesis for diagnosis of chromosomal abnormalities is also available. The risk of complications from the procedure and that risk is 1 in 500 (0.2%). In addition to the risk of chromosomal abnormalities, there is an increased risk of congenital/structural anomalies. RECOMMENDATIONS: Recommend MFM anatomy ultrasound at 19-20 weeks gestation. 2. Migraines CONSIDERATIONS: Reviewed relief measures for headaches in include adequate hydration, small frequent meals, and Tylenol with caffeinated beverage as needed. Advise limiting Tylenol to no greater than 3000 mg per day. No contraindications for taking Fioricet or Tylenol #3 for severe headaches in . RECOMMENDATION: Recommend patient follow up with primary care provider or a neurologist if her headache symptoms persist or worsen. Recommend evaluation for Preeclampsia if greater than 20 weeks gestation. 3. 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 Of these, approximately 90% are a result of chromosomal or anatomical defects which are not compatible with life. Other etiologies include maternal metabolic disease, uterine abnormalities, maternal/paternal chromosome abnormalities, or maternal acquired thrombophilias. Explained that unfortunately, the cause of recurrent loss can be determined in only 50% of patients, but it is important to remember that most women with recurrent losses (3 or more miscarriages) have a good prognosis for eventually having a successful (approximately 71-77%), whether or not a definitive diagnosis is made and treatment initiated. Discussed that in a first , the risk of miscarriage is 11-13%. After one miscarriage, this rate rises slightly to 14-21%. After two miscarriages the recurrence rate is 24-29% and after three miscarriages the recurrence rate is 31-33%. These rates can, however, be significantly altered by several factors including the cause of the miscarriages, advanced maternal age, multiparity, previous live outcome, and gestational age at the time of the previous losses. RECOMMENDATIONS: Chromosome studies could be considered for the couple experiencing recurrent loss. Evaluation for the cause of recurrent loss may include sonohysterography or hysterosalpingogram in the non patient and abdominal/transvaginal ultrasound in the patient for detection of a uterine abnormality which are thought to be responsible for 10-50% of recurrent miscarriages. Some abnormalities are surgically correctable but are major uterine surgery and there are no randomized, controlled studies evaluating outcome after surgical correction of uterine anomalies. Recommend testing for maternal diabetes mellitus with hemoglobin A1C and for thyroid disease with TSH. Discussed that we can test for acquired thrombophilias, but that even if a thrombophilia is discovered, it is not necessarily the cause of miscarriage. If patient has recurrent miscarriages in the future, recommend testing with anticardiolipin antibodies, lupus anticoagulant, and anti-B2 glycoproteins. Last Assessment & Plan: CONSIDERATIONS: Explained that the goal of pre-conception care is to identify and modify medical, behavioral and social risks to a woman's health or outcome through prevention and management. A multi-disciplinary care approach may be indicated specific to the patient's medical problems. Discussed patient's and partner s family history of heritable genetic disorders. RECOMMENDATIONS: Start daily vitamin supplementation with at least 400 micrograms folic acid. Ensure patient is up-to-date with her immunizations. Assess maternal immunity to rubella and varicella prior to conception. If indicated, MMR and VZV should be administered greater than 1 month prior to conception. Recommend annual influenza vaccination for the patient and her partner to reduce risk of maternal infection. Tdap vaccination should be offered to women who have not been vaccinated in the past 2 years. Recommend appropriate routine exercise and proper diet. Consider referral to a see wheeler prior to conception for maternal conditions that may adversely affect maternal nutritional status including obesity, diabetes, history of gastric bypass, hypertensive disorders, underweight and/or history of gastrointestinal or eating disorders. Advise regular physical activity for 30-60 minutes/day for 5 or more days per week. A detailed history of prescribed and over the counter medications, teratogens, including chemical radiation exposures, infections and tobacco, alcohol or substance abuse should be obtained at least annually for all women of reproductive age. The vast majority of prescribed medications are safe in , even in the first trimester. Patient's current medication/teratogen exposures were reviewed with the patient at today's consult visit. Patient was advised to abstain from alcohol preconceptionally. Patient was offered formal genetic counseling with the Maternal -Medicine genetic counselor for detailed review of risk factors for heritable genetic disorders and of appropriate genetic screenings. Recommend patient seek early care once is confirmed. documented as of this encounter (statuses as of 11/07/2023) Social History Tobacco Use Types Packs/Day Years Used Date Smoking Tobacco: Never Smokeless Tobacco: Never Alcohol Use Standard Drinks/Week Comments Yes 0 (1 standard drink = 0.6 oz pur e alcohol) socially Hunger Vital Sign Answer Date Recorded Within the past 12 months, y ou worried that your food would run out before you got the money to buy more. Never true 04/13/20 23 Within the past 12 months, t he food you bought just didn't last and you didn't have money to get more. Never true 04/13/2023 Sex and Gender Information Value Date Recorded Sex Assigned at Female 04/13/2023 5:50 AM EDT Gender Identity Female 04/13/2023 5:50 AM EDT Sexual Orientation Straight 04/13/2023 5: 50 AM EDT Job Start Date Occupation Industry Not on file Not on file Not on file documented as of this encounter Miscellaneous Notes * Telephone Encounter - Rosa Orr LPN - 11/07/2023 11:55 AM EST Pt called in with severe pelvic pain since this morning it hurts to sit. Pt has been taking ibuprofen since this morning with no relief. Pt has ectopic in sep with methotrexate inj. No additional US fu an betas are trending down. I let pt know I will discuss with dr selby and call her back. I spokewith dr selby and he is going to call pt. I provided dr selby pts phone number documented in this encounter Plan of Treatment Upcoming Encounters Date Type Department Care Team (Late st Contact Info) Description 11/14/2023 8:00 AM EST [facility] [place] [address] Adrianna Dietz PA-C [address] [place] [address] Health Maintenance Due Date Last Done Comments Depression Screening 2000 Hepatitis C Screening 2006 COVID-19 Vaccine (2022- season) 2023 06/24/2022, 07/29/2021, 09/24/2020, Additional history exists Influenza Vaccine (FLU shot) (#1) 2023 06/17/2022, 06/18/2021, 06/05/2020, Additional history exists Pap Smear 04/13/2026 04/13/2023 Diabetes Screening 10/04/2026 10/04/2023, 09/27/2023 Cervical Cancer Screening 04/13/2028 HPV/Co-Test 04/13/2028 04/13/2023 DTaP,Tdap,and Td Vaccines (7 - Td or Tdap) 04/09/2030 04/09/2020, 04/01/1993, 11/02/1989, Additional history exists Hepatitis B Completed 10/23/1997, 04/19, 04/04/1997 GARDASIL-HPV IMMUNIZATION SERIES Completed 01/30/2023, 11/27/2007, 09/25/2007 MENINGOCOCCAL (MENACTRA/MENVEO) Aged Out No longer eligible based on patient's age to complete this topic Pneumococcal Vaccine: Pediatrics (0 to 5 Years) and At-Risk Patients (6 to 64 Years) Aged Out No longer eligible based on patient's age to complete this topic documented as of this encounter Medical Devices Not on filedocumented as of this encounter
--- OUTSIDE RECORDS SUMMARY | 2023-11-09 15:16 | External Medical Summary | Summary of Care ---
Author Name Unknown Organization [facility] Address [address] [place] [address] Phone [phone] Care Team Providers Care Inspector Shells Name Role Phone Unavailable Primary Care Provider Unavailabl e Reason for Visit * Reason Onset Date Comments Order Request 11/08/2023 Encounter Details Date Type Department Care Team (Late st Contact Info) Description 11/08/2023 Telephone Radiology [address] [facility] [place] [address] Alvin Selby MD [address] [facility] [place] [address] Order Request Allergies Active Allergy Reactions Criticality Noted Date Comments Bee Venom 04/13/2023 documented as of this encounter (statuses as of 11/08/2023) Medications Medication Sig Dispensed Refills Start Date End Date Status Naratriptan HCl 2.5 MG Oral Tablet (Amerge) Take 1 Tablet by mouth as needed for Migraine. 0 Active documented as of this encounter (statuses as of 11/08/2023) Active Problems Problem Noted Date Diagnosed Date [...] and proper diet. Consider referral to a yard warehouse worker prior to conception for maternal conditions that [...] as of this encounter (statuses as of 11/08/2023) Social History Tobacco Use Types Packs/Day Years [...] encounter Miscellaneous Notes * Telephone Encounter - Cyndy Rai RDMS - 11/08/2023 10:36 AM EST Dmitry Jasso's transvaginal non-ob ultrasound needs to be changed to an OB-transvaginal because of her current HCG level's being 68. Thank you! -US Dept documented in this encounter Plan of Treatment Upcoming Encounters Date Type Department Care Team (Late st Contact Info) Description 11/14/2023 8:00 AM EST Office Visit Fertility [facility] [address] [place] [address] Adrianna Dietz PA-C [address] [place] [address] Pending Results Name Type Priority Associated Diagnoses Date /Time US PELVIS TRANS-VAGINAL OB Medical Imaging Routine Pelvic pain in female 11/08/2023 10:42 AM EST Health Maintenance Due Date Last Done Comments [...] Not on filedocumented as of this encounter Visit Diagnoses Diagnosis Pelvic pain in female- Primary Unspecified symptom associated with female genital organs documented in this encounter
--- OUTSIDE RECORDS SUMMARY | 2023-11-09 15:16 | External Medical Summary | Summary of Care ---
Author Name Unknown Organization [facility] Address [address] [place] [address] Phone [phone] Care Team Providers Care Media Manager Name Role Phone Unavailable Primary Care Provider Unavailabl e Reason for Visit * Reason Onset Date Comments Pain 11/07/2023 Discuss with owu kennedy Encounter Details Date Type Department Care Team (Late st Contact Info) Description 11/07/2023 Telephone Gynecology/Obstetrics [facility] [address] [facility] [place] [address] Alvin Selby MD [address] [facility] [place] [address] Pain (Discuss with elias ) Allergies Active [...] and proper diet. Consider referral to a tso prior to conception for maternal conditions that [...] Encounter - Rosa Orr LPN - 11/07/2023 12:[address] selby called pt and he would like for pt to have US today or tomorrow. I called pt appt ashely Estrada. I also instructed pt if her pain becomes worse she needs to go to er to be evaluated. Pt verbalized understanding * Telephone Encounter - Rosa Orr LPN [...] Team (Late st Contact Info) Description 11/08/2023 10:45 AM EST Imaging Radiology [facility] [address] [place] [address] 11/14/2023 8:00 AM EST Office Visit Fertility [facility] [address] [place] [address] Adrianna Dietz PA-C [address] [facility] [place] [address] Health Maintenance Due Date Last Done Comments Depression Screening 2000 Hepatitis C Screening 2006 COVID-19 Vaccine ( season) 2023 06/24/2022, 07/29/2021, 09/24/2020, Additional history [...]
--- OUTSIDE RECORDS SUMMARY | 2023-11-09 15:16 | External Medical Summary | Summary of Care ---
Author Name Unknown Organization [facility] Address [address] [place] [address] Phone [phone] Care Team Providers Care Generator Operator Name Role Phone Unavailable Primary Care Provider Unavailabl e Encounter Details Date Type Department Care Team (Late st Contact Info) Description 11/01/2023 Result Scan Unspecified Department Alvin Selby MD [address] [place] [address] <No scans attached> Allergies Active Allergy Reactions Criticality Noted Date Comments Bee Venom 04/13/2023 documented as of this encounter (statuses as of 11/02/2023) Medications Medication Sig Dispensed Refills Start Date End Date Status Naratriptan HCl 2.5 MG Oral Tablet (Amerge) Take 1 Tablet by mouth as needed for Migraine. 0 Active documented as of this encounter (statuses as of 11/02/2023) Active Problems Problem Noted Date Diagnosed Date [...] and proper diet. Consider referral to a ecdis n navigation operator prior to conception for maternal conditions that [...] as of this encounter (statuses as of 11/02/2023) Social History Tobacco Use Types Packs/Day Years [...] on file documented as of this encounter Plan of Treatment Upcoming Encounters Date Type Department Care Team (Late st Contact Info) Description 11/14/2023 8:00 AM EST Office Visit Fertility [facility] 132 [facility] [place] [address] Adrianna Dietz PA-C [address] [place] [address] Health Maintenance Due Date Last Done Comments Depression Screening 2000 Hepatitis C Screening 2006 COVID-19 Vaccine (2022-24 season) 2023 06/24/2022, 07/29/2021, 09/24/2020, Additional history [...] Not on filedocumented as of this encounter Procedures Procedure Name Priority Date/Time Associated Diagnosis Comments OUTSIDE LAB RESULTS 11/01/2023 documented in this encounter Results * OUTSIDE LAB RESULTS (11/01/2023) 11/01/2023 Alvin Selby MD LABORATORY documented in this encounter
--- OUTSIDE RECORDS SUMMARY | 2023-11-09 15:16 | External Medical Summary | Summary of Care ---
Author Name Unknown Organization [facility] Address [address] [place] [address] Phone [phone] Care Team Providers Care Wood Box Maker Name Role Phone Unavailable Primary Care Provider Unavailabl e Reason for Visit * Reason Onset Date Comments Order Request 11/08/2023 Encounter Details Date Type Department Care Team (Late st Contact Info) Description 11/08/2023 Telephone [address] [facility] [place] [address] Alvin Selby MD [address] [facility] [address] Order Request Allergies Active Allergy Reactions Criticality [...] and proper diet. Consider referral to a grants specialist prior to conception for maternal conditions that [...] Description 11/08/2023 10:45 AM EST Imaging Radiology [facility] [address] [place] [address] Arrived 11/14/2023 8:00 AM EST Office Visit Fertility [facility] [address] [place] [address] Adrianna Dietz PA-C [address] [place] [address] Pending Results Name Type Priority Associated Diagnoses [...]
--- OUTSIDE RECORDS SUMMARY | 2023-11-09 15:16 | External Medical Summary | Summary of Care ---
Author Name Unknown Organization [facility] Address [address] [place] [address] Phone [phone] Care Team Providers Care Grocery Clerk Name Role Phone Unavailable Primary Care Provider Unavailabl e Reason for Visit * Reason Onset Date Comments Pain 11/07/2023 Discuss with owu kennedy Encounter Details Date Type Department Care Team (Late st Contact Info) Description 11/07/2023 Telephone Gynecology/Obstetrics [facility] [address] [facility] [place] [address] Alvin Selby MD [address] [facility] [place] [address] Pain (Discuss with elias ) Allergies Active [...] and proper diet. Consider referral to a director oncology prior to conception for maternal conditions that [...] or tomorrow. I called pt appt ashely forUS * Telephone Encounter - Rosa Orr LPN [...] Description 11/08/2023 10:45 AM EST Imaging Radiology [facility] 2nd [facility] [address] [place] [address] 11/14/2023 8:00 AM EST Office Visit Fertility [facility] 132 [facility] [place] [address] Adrianna Dietz PA-C 132 [facility] [place] [address] Health Maintenance Due Date Last Done Comments [...]
--- OUTSIDE RECORDS SUMMARY | 2023-11-09 15:16 | External Medical Summary | Summary of Care ---
Author Name Unknown Organization [facility] Address [address] [place] [address] Phone [phone] Care Team Providers Care Journalism Internship Name Role Phone Unavailable Primary Care Provider Unavailabl e Reason for Visit * Reason Comments Outpatient Testing Encounter Details Date Type Department Care Team (Late st Contact Info) Description 11/08/2023 10:20 AM EST Laboratory Laboratory, [facility] [address] [place] [phone] [facility] [address] [place] [address] Ectopic without intrauterine Allergies Active Allergy Reactions Criticality Noted Date [...] and proper diet. Consider referral to a drawing in machine tender prior to conception for maternal conditions that [...] Description 11/08/2023 10:45 AM EST Imaging Radiology [facility] [address] [place] [address] Arrived 11/14/2023 8:00 AM EST Office Visit Fertility [facility] [address] [place] [address] Adrianna Dietz PA-C [address] [place] [address] Pending Results Name Type Priority Associated Diagnoses Date /Time BETA-HCG, QUANTITATIVE Lab Routine Ectopic without intrauterine 11/08/2023 10:18 AM EST Health Maintenance Due Date Last [...] as of this encounter Visit Diagnoses Diagnosis Ectopic without intrauterine Unspecified ectopic without intrauterine documented in this encounter
--- OUTSIDE RECORDS SUMMARY | 2023-11-09 18:40 | External Medical Summary | Summary of Care ---
Author Name Unknown Organization [facility] Address [address] [place] [address] Phone [phone] Care Team Providers Care Street Car Inspector Name Role Phone Unavailable Primary Care Provider Unavailabl e Reason for Visit * Reason Onset Date Comments Abnormal Test Results 11/07/2023 Watch for HCG- Review with provider Encounter Details Date Type Department Care Team (Late st Contact Info) Description 11/07/2023 Telephone Gynecology/Obstetrics [facility] [address] [place] [address] Alvin Selby MD [address] [place] [address] Abnormal Test Results (Watch for HCG- Revi... Allergies Active Allergy Reactions Criticality Noted Date [...] and proper diet. Consider referral to a fabric worker foreman prior to conception for maternal conditions that [...] encounter Miscellaneous Notes * Telephone Encounter - Fiordaliza Garcia RN - 11/08/2023 1:39 PM EST Patient called and made aware. She already had her lab drawn today, it is still in process. Patientreports pain is not constant, occurs with bearing down or bending/moving certain ways. Advised patient that if she is having severe pain at all, Dr. Licona would like her to go to the ER. She verbalized understanding. Advised patient that we would monitor for HCG lab to come back, and once provider reviews, let her know next recommendations. Again stressed importance of going into the ER if she ishaving significant pain. She verbalized understanding to all. * Telephone Encounter - Leni Huitron LPN - 11/08/2023 1:00 PM EST Critical US results reviewed with Dr. Licona. She would like patient to have repeat Hcg today. If her pain is severe she should go to the ER. * Telephone Encounter - Rosa Orr LPN - 11/07/2023 12:[address] selby called pt and he would like for pt to have US today or tomorrow. I called pt appt made forUS. I also instructed pt if her pain [...] Description 11/14/2023 8:00 AM EST Office Visit [facility] [address] [place] [address] Adrianna Dietz PA-C [address] [place] [address] Health Maintenance Due Date Last Done Comments [...]
--- OUTSIDE RECORDS SUMMARY | 2023-11-09 18:40 | External Medical Summary | Summary of Care ---
Author Name Unknown Organization [facility] Address [address] [place] [address] Phone [phone] Care Team Providers Care Guest Services Manager Name Role Phone Unavailable Primary Care Provider Unavailabl e Reason for Visit * Reason Onset Date Comments Pain 11/07/2023 Discuss with owu kennedy Encounter Details Date Type Department Care Team (Late st Contact Info) Description 11/07/2023 Telephone Gynecology/Obstetrics [facility] [address] [facility] [place] [place] [address] Alvin Selby MD [address] [facility] [place] [address] Pain (Discuss with elias ) Allergies Active [...] and proper diet. Consider referral to a map plotter prior to conception for maternal conditions that [...] encounter Miscellaneous Notes * Telephone Encounter - Leni Huitron LPN [...] 11/14/2023 8:00 AM EST Office Visit Fertility [facility] [address] [place] [address] Adrianna Dietz PA-C [address] [place] [address] Health Maintenance Due Date Last Done Comments [...]
--- OUTSIDE RECORDS SUMMARY | 2023-11-09 19:57 | External Medical Summary ---
Author Name Unknown Address Unknown Organization K01:[facility] [place] [address] [address] [facility] [place]. [facility] [address] Laboratory Report Ordering Provider Test Date Status SUZIE CONTRERASU 11/08/2023 10:18:51 Final hCG can serve as a screening assay for . However, early may not give a positive hCG test result. In addition, some non- women may have a hCG result slightly higher than the reference limit. Careful interpretation of the hCG with clinical history is required to determine whether the patient may be . Observation Date Value Abnormality Reference (Units ) Status Choriogonadotropin.int act+Beta subunit [Units/volume] in Serum or Plasma 11/08/2023 10:18:51 28.0 Above high normal <=1.0 (mIU/mL) Final Performing Location LABORATORY [facility] [address] [place] [facility] [address]
--- OUTSIDE RECORDS SUMMARY | 2023-11-09 19:57 | External Medical Summary | Summary of Care ---
Author Name Unknown Organization [facility] Address [address] [place] [address] Phone [phone] Care Team Providers Care Feed Handler Name Role Phone Unavailable Primary Care Provider Unavailabl e Reason for Visit * Reason Onset Date Comments Abnormal Test Results 11/07/2023 Watch for HCG- Review with provider Encounter Details Date Type Department Care Team (Late st Contact Info) Description 11/07/2023 Telephone Gynecology/Obstetrics [facility] [address] [place] [address] Alvin Selby MD [address] [place] [address] Abnormal Test Results (Watch for HCG- Revi... [...] and proper diet. Consider referral to a fancy stitcher prior to conception for maternal conditions that [...] encounter Miscellaneous Notes * Telephone Encounter - Sherly Tejada RN - 11/08/2023 3:08 PM EST Spoke with pt. She is checking to see if her HCG level is back. Advised it is still pending Pt having significant pain when sitting or when she presses on her belly. States that it took her breath away when the US pushed on her. Rates it a 10 out of 10. Advised to go to ER for evaluation and I would let Dr. Licona know. Pt agreeable. * Telephone Encounter - Fiordaliza Garcia RN [...] 11/14/2023 8:00 AM EST [facility] [place] [address] Adrianna Dietz PA-C [address] [place] [address] Health Maintenance Due Date Last Done Comments [...]
== END 2023-11-09 11:05 | disposition home health service (06) ==
LOC: ED 15:18 → 4E1 20:13 → OR 20:13

== ENCOUNTER 2024-08-29 18:57 | Inpatient (IN) ==
[2024-08-29] MEDS ORDERED: LIDOCAINE 1% LOCAL 20 ML VIAL INFIL PRN (19:25)
[2024-08-29] MEDS ORDERED: OXYTOCIN 30 UNITS/NSS 30 UNITS/500 ML BAG IV PRN (19:25)
--- NOTE | 2024-08-29 19:44 | History & Physical Report ---
Date of Service August 29, 2024 Assessment & Plan (1) Elevated blood pressure affecting in third trimester, antepartum: Plan: Patient's chart is reviewed I also discussed with Brandon in the office and Dr. Paula yesterday the patient now meets criteria for preeclampsia without severe features labs will be ordered I checked her cervix is long thick and closed palpates vertex by [place] maneuvers will offer Cytotec vaginally 25 mcg this will be given orders placed plan for induction and delivery vaginally Admission and Anticipated Discharge Date Admission Date: August 29, 2024 History of Present Illness Primary Care Provider: KATY Kevin ANA MARIA Calculator Estimated Delivery Date Method Current WG Current Estimate 09/19/24 Ultrasound #1 37w 0d Other Estimates 09/16/24 LMP (Certain) 37w 3d LMP: 12/11/23 : 4 Full term: 0 Premature: 0 Total Number of Induced Abortions: 0 Total Number of Spontaneous Abortions: 2 Ectopics: 0 Multiple births: 0 Number of Living Children: 1 and Delivery Plans prior ectopic , MTX and surgery 10[facility]) Depression --start zoloft 2nd tri Elective IOL scheduled for 09/12/24 per pt request. Aware she could get bumped. PIH at 37wks Allergies Allergy/AdvReac Type Severity Reaction Status Date / Time bee venom protein (honey bee) Allergy Severe Anaphylaxis Verified 08/28/24 14:35 Home Medications Medication Instructions Recorded Confirmed Type epinephrine 0.3 mg/0.3 mL 0.3 mg IM DAILY PRN Anaphylaxis 11/08/23 08/29/24 History injection, auto-injector prenat.vits,oriana,kqn-xwzl-wigly tab PO DAILY 11/22/23 08/29/24 History coQ10 (ubiquinol) PO 01/30/24 08/29/24 History magnesium PO 01/30/24 08/29/24 History riboflavin (vitamin B2) [Vitamin PO 01/30/24 08/29/24 History B-2] sertraline 50 mg tablet (Zoloft) 50 mg PO DAILY #30 tabs 06/20/24 08/29/24 Rx Patient History Medical History Pelvic pain Ectopic without intrauterine Prior methotrexate therapy Surgical History S/P ectopic History of colposcopy H/O dilation and curettage Family History Brother Myocardial infarction Father Diabetes Fatty liver disease, nonalcoholic Social History Smoking Status: Never smoker Second Hand Exposure: No; Do You Dip or Chew Tobacco: No; Hx Alcohol Use: No Hx Substance Use: No Preferred Language: Welsh Communication Ability: Effective Visual Impairment: No Limitations Correctional Case Records Supervisor Required: No Beliefs That Will Affect Care: None marital status: marital status details: Sage (38) [phone] Current Living Situation: Spouse and Family Current Living Situation Comment: lives with spouse and daughter, 1 dog. 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 [employer] Other Information That Helps Us Care for You: No Feels Safe at Home: Yes Safety Concerns: Feels Safe At This Time Childhood Exposure to Second-Hand Smoke: No Diet: regular caffeine: Yes (coffee and soda ) Dental Care, Regularly: Yes Physical Activity Frequency: Does not Exercise Seatbelt Use: always Sunscreen Use: Yes Assistive Devices: Glasses Physical Exam Constitutional: WD/WN, vitals as above well developed and well nourished Respiratory: normal respiratory effort, lungs clear to auscultation normal respiratory effort Cardiovascular: RRR, no murmur, no edema Gastrointestinal (Abdomen): normal bowel sounds, soft, nontender, no hepatosplenomegaly Results & Data Vital Signs (Past 12 Hours) Vital Signs Temp Pulse Resp BP 08/29/24 19:17 99 H 140/87 08/29/24 19:13 98.4 F 20 Coding Level of Care Code None Diagnoses Elevated blood pressure affecting in third trimester, antepartum O16.3
[2024-08-29] MEDS: miSOPROStoL 25 MCG TAB PV SCH (19:51)
[2024-08-29 19:58] LABS: Hematocrit (blood only) 32.6 % (37.0-47.0); Mean Corpuscular Hemoglobin 31.1 pg (25.0-34.0); Mean Corpuscular Hgb Conc 33.7 g/dL (32.0-36.0); Mean Corpuscular Volume 92.1 fL (80.0-100.0); Mean Platelet Volume 10.6 fL (9.4-12.4); Platelet Count 228 K/uL (130-400); RDW Coefficient of Variation 12.9 % (11.5-14.5); RDW Standard Deviation 43.3 fL (36.4-46.3); Red Blood Count 3.54 M/uL (4.20-5.40); White Blood Count 7.89 K/ul (4.8-10.8)
[2024-08-29 20:02] LABS: Albumin Globulin Ratio 1.2 (0.9-2); Albumin Level 3.7 gm/dl (3.4-5.0); BUN Creatinine Ratio 17.8 (10-20); Bilirubin,Total 0.3 mg/dl (0.2-1.0); Calcium 9.1 mg/dl (8.6-10.3); Creatinine Clr Calc Pharmacy 111.8 ml/min; Potassium 3.6 mmol/L (3.5-5.1); Total Protein 6.7 gm/dl (6.0-8.3)
[2024-08-29] MEDS: miSOPROStoL 25 MCG TAB ONE (20:24)
[2024-08-29] MEDS: CALCIUM CARBONATE 500 MG CHEWABLE TAB PO PRN (23:13)
[2024-08-29] MEDS: ACETAMINOPHEN 325 MG TAB PO PRN (23:13)
[2024-08-30] MEDS: miSOPROStoL 25 MCG TAB PO ONE (03:28)
[2024-08-30] MEDS: SODIUM CHLORIDE 0.9% 1,000 ML IV SCH (09:05)
--- NOTE | 2024-08-30 09:20 | Anesthesiology Consultation ---
Date of Service August 30, 2024 Assessment & Plan Chart Review Chart Review: Acceptable Risk for Labor Epidural Consults Requested none History Height/Weight Height: 5 ft 4 in Weight: 84.187 kg Allergies Allergy/AdvReac Type Severity Reaction Status Date / Time bee venom protein (honey bee) Allergy Severe Anaphylaxis Verified 08/28/24 14:35 Medications Home Medications Medication Instructions Recorded Confirmed Last Taken epinephrine 0.3 mg/0.3 mL 0.3 mg IM DAILY PRN Anaphylaxis 11/08/23 08/29/24 Unknown injection, auto-injector prenat.vits,oriana,iuw-xfam-zhzfh tab PO DAILY 11/22/23 08/29/24 Unknown coQ10 (ubiquinol) PO 01/30/24 08/29/24 Unknown magnesium PO 01/30/24 08/29/24 Unknown riboflavin (vitamin B2) [Vitamin PO 01/30/24 08/29/24 Unknown B-2] sertraline 50 mg tablet (Zoloft) 50 mg PO DAILY #30 tabs 06/20/24 08/29/24 08/28/24 Active Medications Generic Name Dose Route Start Last Admin Trade Name Freq PRN Reason Stop Dose Admin Acetaminophen 650 mg 08/29/24 21:04 08/30/24 04:36 Acetaminophen 325 Mg Tab PO 09/28/24 21:03 650 mg Q4H PRN Administration Headache or Pain Calcium Carbonate 500 mg 08/29/24 21:04 08/29/24 23:13 Calcium Carbonate 500 Mg Chewable Tab PO 09/28/24 21:03 500 mg Q4 PRN Administration Indigestion Misoprostol 25 mcg 08/29/24 21:00 08/29/24 19:51 Misoprostol 25 Mcg Tab PV 09/28/24 20:59 25 mcg BID TIARA Administration Past Medical History Medical History Pelvic pain Ectopic without intrauterine Prior methotrexate therapy Past Family History Family History Brother Myocardial infarction Father Diabetes Fatty liver disease, nonalcoholic Past Surgical History Surgical History S/P ectopic History of colposcopy H/O dilation and curettage Social History Smoking Status: Never smoker Do You Dip or Chew Tobacco: No Hx Alcohol Use: No alcohol intake frequency: a few times a month Hx Substance Use: No Physical Exam Vital Signs Last Vital Signs Temp 36.7 C 08/30/24 07:08 Pulse 78 08/30/24 08:59 Resp 18 08/30/24 04:32 BP 134/85 08/30/24 08:59 Testing Laboratory Results 08/29/24 19:35 08/29/24 19:35
[2024-08-30] MEDS: fentaNYL citrate PF 100 MCG/2 ML VIAL ONE (09:41)
[2024-08-30] MEDS: BUPIVACAINE 0.25% PF 30 ML VIAL ONE (09:41)
[2024-08-30] MEDS: SODIUM CHLORIDE 0.9% PF INJ 10 ML VIAL ONE (09:41)
[2024-08-30] MEDS: LIDOCAINE 2%/EPINEPHRINE 1:200,000 20 ML PF ONE (09:42)
[2024-08-30] MEDS: fentANYL 2 MCG/ML BUPIVacaine 0.125%-NSS 100ML BAG ONE (09:50)
--- NOTE | 2024-08-30 11:04 | Labor Progress Brief Note ---
Date of Service August 30, 2024 Subjective Reason For Note: Routine Evaluation epidural effective- no PIH symptoms- BP 110/60 contractions have spaced out cervix 4-5cm/ 60/-2 AROM for clear fluid will start pitocin augment if needed FHT's category 1 Assessment & Plan Admission and Anticipated Discharge Date Admission Date: August 29, 2024 Results & Data Vital Signs (Past 12 Hours) Vital Signs Temp Pulse Resp BP Pulse Ox 08/30/24 10:57 82 110/65 08/30/24 10:56 89 100 08/30/24 10:51 93 H 98 08/30/24 10:46 82 97 08/30/24 10:42 77 110/60 08/30/24 10:41 80 99 08/30/24 10:36 91 H 98 08/30/24 10:31 88 99 08/30/24 10:28 80 120/73 08/30/24 10:26 82 99 08/30/24 10:21 85 99 08/30/24 10:16 85 98 08/30/24 10:11 98 08/30/24 10:11 83 08/30/24 10:11 88 119/68 08/30/24 10:08 78 118/66 08/30/24 10:06 85 122/67 98 08/30/24 10:05 77 117/60 08/30/24 10:03 73 98/56 L 08/30/24 10:02 93 H 133/81 08/30/24 10:01 93 H 98 08/30/24 09:59 108 H 127/78 08/30/24 09:56 99 08/30/24 09:56 122 H 08/30/24 09:56 108 H 139/91 08/30/24 09:53 104 H 140/88 08/30/24 09:51 108 H 100 08/30/24 09:50 94 H 136/83 08/30/24 09:47 96 H 144/90 H 08/30/24 09:46 98 H 100 08/30/24 09:44 97 H 146/98 H 08/30/24 09:41 99 H 100 08/30/24 09:36 85 100 08/30/24 08:59 78 134/85 08/30/24 07:11 90 130/84 08/30/24 07:08 98.1 F 08/30/24 04:32 18 08/30/24 04:32 97.9 F 18 08/30/24 03:27 74 137/80 08/29/24 23:14 98.2 F 08/29/24 23:12 90 136/87 Coding Level of Care Code 64756 SUB INP/OBS CARE
[2024-08-30] MEDS: OXYTOCIN 30 UNITS/NSS 30 UNITS/500 ML BAG IV PRN (12:01)
[2024-08-30] MEDS: diphenhydrAMINE 50 MG/ML VIAL IV ONE (14:22)
[2024-08-30] MEDS: ePHEDrine sulfate 50 MG/ML AMP ONE (15:14)
[2024-08-30] MEDS ORDERED: oxyCODONE/ACETAMINOPHEN 5mg/325mg TAB PO PRN (15:29)
[2024-08-30] MEDS ORDERED: BENZOCAINE 20% SPRY 85 APPLN/85 GM CAN EXT PRN (15:29)
[2024-08-30] MEDS ORDERED: OXYTOCIN 30 UNITS/NSS 30 UNITS/500 ML BAG IV PRN (15:29)
[2024-08-30] MEDS ORDERED: ACETAMINOPHEN 325 MG TAB PO PRN (15:29)
[2024-08-30] MEDS ORDERED: HYDROCORTISONE ACETATE 25 MG SUPP PR PRN (15:29)
[2024-08-30] MEDS ORDERED: bisacodyL 10 MG SUPP PR PRN (15:29)
[2024-08-30] MEDS ORDERED: LIDOCAINE 2% MPF LOCAL 5 ML VIAL EPI PRN (15:39)
[2024-08-30] MEDS ORDERED: SODIUM CHLORIDE 0.9% PF INJ 10 ML VIAL EPI PRN (15:39)
[2024-08-30] MEDS ORDERED: BUPIVACAINE 0.25% PF 30 ML VIAL EPI PRN (15:39)
[2024-08-30] MEDS ORDERED: ROPIVACAINE 0.5% PF 5 MG/ML 20 ML VIAL EPI PRN (15:39)
[2024-08-30] MEDS ORDERED: diphenhydrAMINE 50 MG/ML VIAL IV PRN (15:39)
[2024-08-30] MEDS ORDERED: NALOXONE HCL 0.4 MG/1 ML VIAL/CARP IV PRN (15:39)
[2024-08-30] MEDS ORDERED: fentaNYL citrate PF 100 MCG/2 ML VIAL EPI PRN (15:39)
[2024-08-30] MEDS ORDERED: NALBUPHINE HCL INJ 10 MG/ML AMP IV PRN (15:39)
[2024-08-30] MEDS ORDERED: fentANYL 2 MCG/ML BUPIVacaine 0.125%-NSS 100ML BAG EPI PRN (15:39)
[2024-08-30] MEDS ORDERED: ePHEDrine sulfate 50 MG/ML AMP IV PRN (15:39)
[2024-08-30] MEDS ORDERED: NALOXONE HCL 1 MG in SODIUM CHLORIDE 0.9% 1,000 ML IV PRN (15:41)
[2024-08-30] MEDS: DIPHTHER/TETAN/PERTUS Vaccine (Tdap, Adol/Adult) 0.5mL IM ONE (16:07)
[2024-08-30] MEDS: BUPIVACAINE 0.25% PF 30 ML VIAL EPI STA (16:07)
[2024-08-30] MEDS: SODIUM CHLORIDE 0.9% PF INJ 10 ML VIAL EPI STA (16:08)
[2024-08-30] MEDS: LIDOCAINE 2%/EPINEPHRINE 1:200,000 20 ML PF EPI STA (16:08)
[2024-08-30] MEDS: fentaNYL citrate PF 100 MCG/2 ML VIAL EPI STA (16:08)
--- NOTE | 2024-08-30 18:19 | Anesthesia Procedure Note ---
Date of Service August 30, 2024 Anesthesia Post Epidural Note Vital Signs Vital Signs: Temp Pulse Resp BP Pulse Ox 98.1 F 111 H 18 132/87 100 08/30/24 13:00 08/30/24 16:57 08/30/24 13:00 08/30/24 16:57 08/30/24 15:26 Pain Intensity Bilateral Abdomen: Pain Intensity: 7 Notes Mental Status: alert / awake / arousable and participated in evaluation Nausea / Vomiting: adequately controlled Pain: adequately controlled Airway Patency, RR, SpO2: stable & adequate BP & HR: stable & adequate Hydration State: stable & adequate Neuraxial Anesthesia: was administered and sensory block is resolving Anesthetic Complications: no major complications apparent and Pt Satisfied with anesthetic care Epidural: Removed without complications and With tip intact
[2024-08-30] MEDS: IBUPROFEN 600 MG TAB PO PRN (19:11)
--- NOTE | 2024-08-30 19:17 | Delivery Summary ---
Vaginal Delivery Summary Date of Service August 30, 2024 Vaginal Delivery Summary and 2nd Degree LAC (right labia tear repaired) Patient is a 34-year-old 2 para 1-0-0-1 female EDC 09/19/2024 who was induced at 37 and 1 sevenths weeks for mild preeclampsia. Induction was started with Cytotec and then labor was augmented with Pitocin per labor delivery protocol. She received effective epidural analgesia. Membranes were ruptured for clear fluid. She progressed to full dilation and pushed effectively over intact perineum for delivery of a viable female infant over intact perineum. She was placed on the mother's abdomen for further attention and drying. She was vigorous crying and moving all 4 limbs. There was a loop of umbilical cord around the baby's left ankle. After 1 minute, the cord was clamped and cut. After cord blood was obtained, the placenta was expressed intact with a three- vessel cord. The right labial laceration was repaired with 3-0 chromic in the usual fashion. bleeding was controlled with dilute Pitocin and fundal massage. QBL is 100 cc. Mother and infant were doing well after delivery. [facility] [place] Delivery Type Details: and 2nd Degree LAC (right labia tear repaired)
[2024-08-30] MEDS: DOCUSATE SODIUM 100 MG CAP PO SCH (20:24)
[2024-08-30] MEDS: SERTRALINE HCL 50 MG TABLET PO SCH (20:25)
[2024-08-31 07:08] LABS: Hematocrit (blood only) 31.1 % (37.0-47.0); Hemoglobin 10.2 g/dl (12.0-16.0); Mean Corpuscular Hemoglobin 30.4 pg (25.0-34.0); Mean Corpuscular Hgb Conc 32.8 g/dL (32.0-36.0); Mean Corpuscular Volume 92.8 fL (80.0-100.0); Mean Platelet Volume 10.5 fL (9.4-12.4); Platelet Count 188 K/uL (130-400); RDW Coefficient of Variation 13.1 % (11.5-14.5); RDW Standard Deviation 44.3 fL (36.4-46.3); Red Blood Count 3.35 M/uL (4.20-5.40); White Blood Count 7.95 K/ul (4.8-10.8)
[2024-08-31] MEDS: PRENATAL VITAMIN 1 TAB PO SCH (08:34)
--- NOTE | 2024-08-31 08:47 | Obstetrical Progress Note ---
Date of Service August 31, 2024 Assessment & Plan (1) Encounter for care and examination after delivery: BP's have normalized- but will get BP check early this week normal course plan to discharge later today if BP remains stable Subjective Ambulation: ambulating normally Voiding: no voiding problems Passing Gas:: Yes Diet Tolerance:: regular diet Lochia:: Small Feeding Type:: breast feeding no PIH symptoms. feels really good this morning Review of Systems All systems reviewed & are unremarkable except as noted in HPI & below Physical Exam Constitutional WD/WN, vitals as above Psychiatric A+Ox3, euthymic affect Genitourinary OB Exam Abdomen: + fundal height Fundus: + firm and + relation to umbilicus (1 below U) Results & Data Vital Signs (Past 12 Hours) Vital Signs Temp Pulse Pulse Resp BP Pulse Ox O2 Del Method 08/31/24 07:45 Room Air 08/31/24 07:22 97.9 F 84 16 131/84 99 Room Air 08/31/24 03:03 97.7 F 74 16 130/85 98 Room Air 08/30/24 23:06 98.6 F 84 16 132/89 98 Room Air
[2024-08-31] MEDS ORDERED: Nursing to Pharmacy Communication SCH (17:15)
[2024-08-31] MEDS: bisacodyL 5 MG TABEC PO SCH (20:10)
[2024-08-31] MEDS: SERTRALINE HCL 50 MG TABLET PO SCH (20:10)
[2024-08-31 22:19] VITALS: RESP 18
[2024-09-01 00:16] VITALS: TEMP 97.9
[2024-09-01 06:55] LABS: Hematocrit (blood only) 31.1 % (37.0-47.0); Hemoglobin 10.3 g/dl (12.0-16.0)
[2024-09-01 08:40] VITALS: O2SAT 97
[2024-09-01 09:30] VITALS: PULSE 89
[2024-09-01 11:13] VITALS: BP 136/90
== END 2024-09-01 11:45 | disposition home or self-care (01) | DRG 807 ==
LOC: 4S1 18:57 → 4E2 08-30 17:59